=== PATIENT | male | born 1995 | race Two or more races ===

== ENCOUNTER 2022-04-29 21:01 | Emergency (ER) | payer OTHER ==
[~2022-04-29] VITALS: Ht 188 cm; Wt 97.5 kg
[2022-04-29] MEDS ORDERED: DUI500 PO (22:16)
== END 2022-04-29 22:20 | disposition home or self-care (01) ==
LOC: ER 21:01
DX: S91.312A Laceration without foreign body, left foot, initial encounter (principal); W18.30XA Fall on same level, unspecified, initial encounter; Y93.01 Activity, walking, marching and hiking; Y92.413 State road as the place of occurrence of the external cause; Y99.9 Unspecified external cause status